=== PATIENT | male | born 2000 | race Caucasian/White ===

== ENCOUNTER 2023-08-11 01:43 | Emergency (ER) | payer OTHER ==
[~2023-08-11] VITALS: Ht 195.6 cm; Wt 96.0 kg
[2023-08-11 02:55] VITALS: BP 124/63; PULSE 62; RESP 16; TEMP 98.5; O2SAT 99
[2023-08-11] MEDS ORDERED: HYDR15CR41 TP (05:26)
[2023-08-11] MEDS ORDERED: EPIN0.3P3 IM (05:26)
[2023-08-11] MEDS ORDERED: DIPH25CA83 MT (05:26)
[2023-08-11] MEDS ORDERED: FAMOTIDINE 20MG TABLET PO ONE (05:30)
[2023-08-11] MEDS ORDERED: DIPHENHYDRAMINE 25MG CAPSULE PO ONE (05:30)
[2023-08-11] MEDS ORDERED: DEXAMETHASONE 4MG TABLET PO ONE (05:30)
[2023-08-11] MEDS ORDERED: DEXAMETHASONE 2MG TABLET PO NR (05:45)
== END 2023-08-11 06:26 | disposition home or self-care (01) ==
LOC: ER 01:43
DX: S10.96XA Insect bite of unspecified part of neck, initial encounter (principal); S80.861A Insect bite (nonvenomous), right lower leg, initial encounter; S70.361A Insect bite (nonvenomous), right thigh, initial encounter; I49.9 Cardiac arrhythmia, unspecified; Z88.0 Allergy status to penicillin; W57.XXXA Bitten or stung by nonvenomous insect and other nonvenomous arthropods, initial encounter; Y93.89 Activity, other specified; Y92.89 Other specified places as the place of occurrence of the external cause; Y99.8 Other external cause status
CPT/HCPCS: 99284; 93005; J8540; Q0163